=== PATIENT | female | born 2005 | race Two or more races ===

== ENCOUNTER 2023-07-08 13:27 | Emergency (ER) | payer MEDICAID ==
[~2023-07-08] VITALS: Ht 170.2 cm; Wt 83.5 kg
[2023-07-08 14:26] LABS: Urine Bacteria None Seen /hpf (None Seen)
[2023-07-08 14:49] LABS: Urine Blood 3+ /uL (Negative); Urine Clarity Clear (Clear); Urine Color Light-Yellow (Yellow); Urine Protein, UAD Negative (Negative); Urine Specific Gravity 1.015 (1.001-1.035); Urine Urobilinogen Normal (Negative); Urine WBC 1 /hpf (0 - 5); Urine pH 5.5 (5.0-9.0)
[2023-07-08 15:24] VITALS: BP 123/85; PULSE 81; RESP 18; TEMP 98.8; O2SAT 99
[2023-07-08 16:44] LABS: Basophils # (auto) 0.1 10 ^3/uL (0-0.2); Basophils % (auto) 0.6 % (0.0-2.0); Eosinophils # (auto) 0.2 10 ^3/uL (0-0.8); Eosinophils % (auto) 2.2 % (0.0-7.0); Hematocrit 46.3 % (36.0-46.0); Hemoglobin 15.4 g/dL (12.2-16.2); Lymphocytes # (auto) 2.3 10 ^3/uL (0.4-5.4); Lymphocytes % (auto) 25.7 % (10.0-50.0); Mean Corpuscular Hemoglobin 30.7 pg (28.0-32.0); Mean Corpuscular Hgb Conc. 33.3 g/dL (32.0-36.0); Mean Corpuscular Volume 92.1 fL (80.0-100.0); Monocytes # (auto) 0.5 10 ^3/uL (0-1.3); Neutrophils # (auto) 5.9 10 ^3/uL (1.6-8.6); Neutrophils % (auto) 65.5 % (37.0-80.0); Red Blood Cells 5.03 10^6/uL (4.0-5.20); Red Cell Distribution Width 13.2 % (11.8-14.3)
[2023-07-08] MEDS ORDERED: NAPR-746 PO (16:57)
== END 2023-07-08 17:07 | disposition home or self-care (01) ==
LOC: ER 13:27
DX: N92.0 Excessive and frequent menstruation with regular cycle (principal)
CPT/HCPCS: 36415; 81001; 81025; 85025